=== PATIENT | female | born 1930 | race Caucasian/White ===

== ENCOUNTER → 2017-03-06 | Outpatient (CLI) | payer BC ==
[~2017-03-06] MED LIST: ADVIN50050 INH; ALBUAER2 INH; CLC100X PO; CRD30 PO; DRON400T PO; HYDR-5688 PO; IRON1TAB6 PO; LSX20 PO; OMEG10007 PO; POTA10CA28 PO; WARF2TAB8 PO
[2017-03-06 14:56] LABS: ESTIMATED AVERAGE GLUCOSE 114 mg/dl; HA1C FLAG Normal (Normal)
[2017-03-06 15:02] LABS: BASO % 0.3 %; BASO ABS # 0.02 K/uL (0-0.2); COMPLETE YES; EOS % 2.5 %; HEMATOCRIT 46.1 % (37-47); IG% 0.2 %; LYMPH % 20.9 %; LYMPH ABS # 1.32 K/uL (1.2-3.4); MEAN CELL VOLUME 89.9 fL (80-100); MEAN CORPUSCULAR HEMOGLOBIN 30.2 pg (25-34); MEAN CORPUSCULAR HGB CONC 33.6 g/dl (32-36); MEAN PLATELET VOLUME 12.6 fL (7.4-10.4); NEUT % 66.1 %; PLATELET COUNT 242 K/uL (130-400); RED BLOOD COUNT 5.13 M/uL (4.2-5.4); WHITE BLOOD COUNT 6.32 K/uL (4.8-10.8)
[2017-03-06 15:36] LABS: ALKALINE PHOSPHATASE 86 U/L (45-117); ALT/SGPT 19 U/L (12-78); AST/SGOT 14 U/L (15-37); BLOOD UREA NITROGEN 21 mg/dl (7-18); BUN/CREATININE RATIO 17.3 (10-20); CALCIUM 9.6 mg/dl (8.5-10.1); CARBON DIOXIDE 28 mmol/L (21-32); CHLORIDE 109 mmol/L (98-107); CHOLESTEROL 206 mg/dl (0-200); GLUCOSE 108 mg/dl (70-99); POTASSIUM 3.9 mmol/L (3.5-5.1); SODIUM 143 mmol/L (136-145); TRIGLYCERIDES 80 mg/dl (0-150); URIC ACID 5.9 mg/dl (2.6-7.2); VERY LOW DENSITY LIPOPROT CALC 16 mg/dl
[2017-03-06 15:45] LABS: CHOLESTEROL/HDL RATIO 2.6; HDL CHOLESTEROL 79 mg/dl; LDL CHOLESTEROL CALCULATED 111 mg/dl; THYROID STIMULATING HORMONE 0.747 uIu/ml (0.300-4.500); TOTAL IRON BINDING CAPACITY 301 mcg/dl (250-450)
== END | disposition home or self-care (01) ==
LOC: C.LAB 13:54
PROVIDERS: ATTEND Family Medicine
DX: E88.81 Metabolic syndrome and other insulin resistance (principal); E55.9 Vitamin D deficiency, unspecified; D51.9 Vitamin B12 deficiency anemia, unspecified; E78.9 Disorder of lipoprotein metabolism, unspecified; R53.83 Other fatigue

== ENCOUNTER 2017-04-13 15:14 | Emergency (ER) | payer BC ==
[~2017-04-13] VITALS: Ht 154.9 cm; Wt 87.0 kg
[2017-04-13 15:16] VITALS: TEMP 36.8; Ht 154.9 cm; Wt 87.0 kg
[2017-04-13] MEDS ORDERED: DILT180C50 PO (16:30)
[2017-04-13] MEDS ORDERED: ZOLP10TA6 PO (16:30)
[2017-04-13] MEDS ORDERED: OMEP20CA9 PO (16:30)
[2017-04-13] MEDS ORDERED: LSX20 PO (16:35)
[2017-04-13] MEDS ORDERED: FERR1TAB13 PO (16:35)
--- NOTE | 2017-04-13 16:51 | EMERGENCY ROOM VISIT NOTE ---
History First contact with patient: 15:48 Chief Complaint: URINARY SYMPTOMS Stated Complaint: YELLOW URINE/ODOR, FEEL HORRIBLE Nursing Triage Summary: urinary frequency, foul urine odor generalized illness History of Present Illness The patient is a 86 year old female who presents to the Emergency Room with complaints of increase frequency of urination and foul odor since yesterday. She denies any fevers, chills, nausea, vomiting, flank pain, suprapubic pain, gross hematuria. She reportedly called her PCP's office who then directed her to the ER. She does report some vaginal dryness/itching. Review of Systems See HPI for pertinent positives & negatives. A total of 10 systems reviewed and were otherwise negative. Past Medical/Surgical History Medical Problems: (1) Atrial flutter (2) CHF (congestive heart failure), NYHA class III (3) COPD (chronic obstructive pulmonary disease) (4) Replacement of mitral valve Surgical Problems: (1) Status post left hip replacement Family History Diabetes mellitus Social History Smoking Status: Former Smoker Marital Status: single Housing Status: lives alone Occupation Status: retired Current/Historical Medications Scheduled Albuterol (Ventolin Hfa), 2 PUFFS INH Q4HR Clobetasol Propionate (Clobetasol Propionate), 1 APPLN TOP BID Diltiazem Hcl Coated Beads (Cartia Xt), 180 MG PO DAILY Docusate Sodium (Colace), 100 MG PO DAILY Ferrous Sulfate (Kp Ferrous Sulfate), 325 MG PO QPM Fluticasone Prop/Salmeterol (Advair Diskus 500/50 Mcg *), 2 PUFFS INH BID Omeprazole (Prilosec), 20 MG PO DAILY Potassium Chloride (Micro-K Ext Rel), 10 MEQ PO DAILY Warfarin Sod (Jantoven), 2 MG PO 5XWK Warfarin Sod (Jantoven), 4 MG PO 2XWK Zolpidem Tartrate (Zolpidem Tartrate), 10 MG PO HS Scheduled PRN Furosemide (Furosemide), 20 MG PO DAILY PRN for PRN Physical Exam Vital Signs Date Time Temp Pulse Resp B/P (MAP) Pulse Ox O2 Delivery O2 Flow Rate FiO2 04/13/17 18:18 75 18 177/116 97 04/13/17 17:14 94 18 155/88 97 Room Air 04/13/17 15:16 36.8 102 20 167/95 96 Room Air Physical Exam GENERAL: Patient is in no acute distress. LUNGS: Clear to auscultation bilaterally, no wheeze, no rhonchi, breath sounds equal. HEART: Without murmurs gallops or rubs, regular rate and rhythm. ABDOMEN: Soft, nontender, bowel sounds positive, no hernias, no peritonitis. EXTREMITIES: trace edema, full range of motion of all the joints without pain or difficulty NEUROLOGIC: Oriented x 3, no acute motor or sensory deficits, no focal weakness. SKIN: No rash, no jaundice, no diaphoresis. Back: no CVA tenderness Medical Decision & Procedures Laboratory Results 04/13/17 17:03 Red Blood Count 4.83, Mean Corpuscular Volume 91.9, Mean Corpuscular Hemoglobin 30.4, Mean Corpuscular Hemoglobin Concent 33.1, Mean Platelet Volume 12.6, Neutrophils (%) (Auto) 74.5, Lymphocytes (%) (Auto) 13.3, Monocytes (%) (Auto) 9.0, Eosinophils (%) (Auto) 2.8, Basophils (%) (Auto) 0.1, Neutrophils # (Auto) 5.52, Lymphocytes # (Auto) 0.99, Monocytes # (Auto) 0.67, Eosinophils # (Auto) 0.21, Basophils # (Auto) 0.01 04/13/17 17:03 Test 04/13/17 16:54 04/13/17 17:03 Urine Color YELLOW Urine Appearance CLEAR (CLEAR) Urine pH 5.0 (4.5-7.5) Urine Specific [place] 1.019 (1.000-1.030) Urine Protein NEG (NEG) Urine Glucose (UA) NEG (NEG) Urine Ketones NEG (NEG) Urine Occult Blood 1+ (NEG) Urine Nitrite NEG (NEG) Urine Bilirubin NEG (NEG) Urine Urobilinogen NEG (NEG) Urine Leukocyte Esterase NEG (NEG) Urine WBC (Auto) 1-5 /hpf (0-5) Urine RBC (Auto) 0-4 /hpf (0-4) Urine Hyaline Casts (Auto) 1-5 /lpf (0-5) Urine Epithelial Cells (Auto) >30 /lpf (0-5) Urine Bacteria (Auto) NEG (NEG) White Blood Count 7.42 K/uL (4.8-10.8) Red Blood Count 4.83 M/uL (4.2-5.4) Hemoglobin 14.7 g/dL (12.0-16.0) Hematocrit 44.4 % (37-47) Mean Corpuscular Volume 91.9 fL (80-100) Mean Corpuscular Hemoglobin 30.4 pg (25-34) Mean Corpuscular Hemoglobin Concent 33.1 g/dl (32-36) Platelet Count 215 K/uL (130-400) Mean Platelet Volume 12.6 fL (7.4-10.4) Neutrophils (%) (Auto) 74.5 % Lymphocytes (%) (Auto) 13.3 % Monocytes (%) (Auto) 9.0 % Eosinophils (%) (Auto) 2.8 % Basophils (%) (Auto) 0.1 % Neutrophils # (Auto) 5.52 K/uL (1.4-6.5) Lymphocytes # (Auto) 0.99 K/uL (1.2-3.4) Monocytes # (Auto) 0.67 K/uL (0.11-0.59) Eosinophils # (Auto) 0.21 K/uL (0-0.5) Basophils # (Auto) 0.01 K/uL (0-0.2) RDW Standard Deviation 48.5 fL (36.4-46.3) RDW Coefficient of Variation 14.3 % (11.5-14.5) Immature Granulocyte % (Auto) 0.3 % Immature Granulocyte # (Auto) 0.02 K/uL (0.00-0.02) Anion Gap 7.0 mmol/L (3-11) Est Creatinine Clear Calc Drug Dose 36.4 ml/min Estimated GFR () 52.9 Estimated GFR (Non- 45.6 BUN/Creatinine Ratio 22.2 (10-20) Calcium Level 10.0 mg/dl (8.5-10.1) Total Bilirubin 0.2 mg/dl (0.2-1) Direct Bilirubin < 0.1 mg/dl (0-0.2) Aspartate Amino Transf (AST/SGOT) 19 U/L (15-37) Alanine Aminotransferase (ALT/SGPT) 26 U/L (12-78) Alkaline Phosphatase 108 U/L (45-117) Total Protein 7.6 gm/dl (6.4-8.2) Albumin 3.6 gm/dl (3.4-5.0) Globulin 4.0 gm/dl (2.5-4.0) Albumin/Globulin Ratio 0.9 (0.9-2) ED Course 1620 Patient evaluated in B6 with history and physical 1630 Blood work and U/A ordered 1745 Reviewed results with patient 1800 External Genital exam done 1810 Discharge plans discussed Medical Decision This is an 86 y/o F who presents with increased urinary frequency x 1 day. Etiologies considered include UTI, pyelonephritis, kidney stone, vaginal dryness etc. The patient's CBC was normal. Her U/A showed 1+ blood but no bacteria, nitrites or leuk. est. I explained the findings to the patient and no treatment was provided at this time, but recommended close follow up with PCP, especially if symptoms did not improve/worsened. I did do an external vaginal exam and noted vulvar erythema that extended around the anus as well. This seemed almost like lichen sclerosus/vulvar erythema that could be contributing to her itching/dryness. She was given a prescription for Clobetasol and recommended to use for a week. She was happy with the care provided and all questions were answered. Impression Primary Impression: Vulvar itching Departure Information Condition GOOD Prescriptions Clobetasol Propionate (CLOBETASOL PROPIONATE) 45 Appln/15 Gm Oint 1 APPLN TOP BID for 7 Days, #15 GM Prov: Zoe Warner MD 04/13/17 Referrals Yoel Almodovar M.D. (PCP) Patient Instructions [facility]
[2017-04-13 17:21] LABS: BASO % 0.1 %; BASO ABS # 0.01 K/uL (0-0.2); COMPLETE YES; EOS % 2.8 %; HEMATOCRIT 44.4 % (37-47); IG% 0.3 %; LYMPH % 13.3 %; LYMPH ABS # 0.99 K/uL (1.2-3.4); MEAN CELL VOLUME 91.9 fL (80-100); MEAN CORPUSCULAR HEMOGLOBIN 30.4 pg (25-34); MEAN CORPUSCULAR HGB CONC 33.1 g/dl (32-36); MEAN PLATELET VOLUME 12.6 fL (7.4-10.4); NEUT % 74.5 %; PLATELET COUNT 215 K/uL (130-400); RED BLOOD COUNT 4.83 M/uL (4.2-5.4); WHITE BLOOD COUNT 7.42 K/uL (4.8-10.8)
[2017-04-13 17:27] LABS: URINE APPEARANCE CLEAR (CLEAR); URINE BILIRUBIN NEG (NEG); URINE COLOR YELLOW; URINE EPITHELIAL CELL AUTO >30 /lpf (0-5); URINE NITRITE NEG (NEG); URINE SPECIFIC GRAVITY 1.019 (1.000-1.030); UROBILINOGEN NEG (NEG); ZZUR CULT IF INDIC CLEAN CATCH NO
[2017-04-13 17:29] LABS: MANUAL MICROSCOPIC REQUIRED? NO; REVIEW REQ? NO
[2017-04-13 17:42] LABS: ALT/SGPT 26 U/L (12-78); AST/SGOT 19 U/L (15-37); BLOOD UREA NITROGEN 24 mg/dl (7-18); BUN/CREATININE RATIO 22.2 (10-20); CARBON DIOXIDE 26 mmol/L (21-32); CHLORIDE 108 mmol/L (98-107); CREATININE 1.09 mg/dl (0.60-1.20); GLUCOSE 141 mg/dl (70-99); POTASSIUM 3.9 mmol/L (3.5-5.1); SODIUM 141 mmol/L (136-145)
[2017-04-13 17:44] LABS: ALB/GLOB RATIO 0.9 (0.9-2); ALKALINE PHOSPHATASE 108 U/L (45-117)
[2017-04-13] MEDS ORDERED: CLBPO15 TOP (18:11)
--- NOTE | 2017-04-13 18:14 | EMERGENCY ROOM VISIT NOTE ---
ED Visit Note First contact with patient: 16:00 Pt seen and examined with at bedside after resident. Pt aware of all results. Patient's labs and urine reassuring. Patient agreeable with plan as discussed. Patient to follow-up with family doctor. Discussed with her or concerning symptoms that she should return to the emergency room for. Discussed use of her regular medications. Patient well-appearing on my bedside exam, exam not consistent with bacteremia/sepsis, acute GI pathology, kidney stone, or pyelonephritis.
[2017-04-13 18:18] VITALS: BP 177/116; PULSE 75; O2SAT 97
== END 2017-04-13 18:20 | disposition home or self-care (01) ==
LOC: C.EDB 15:15
DX: L29.2 Pruritus vulvae (principal); J44.9 Chronic obstructive pulmonary disease, unspecified; Z87.891 Personal history of nicotine dependence; Z96.642 Presence of left artificial hip joint; Z95.2 Presence of prosthetic heart valve; Z83.3 Family history of diabetes mellitus; Z79.01 Long term (current) use of anticoagulants

== ENCOUNTER → 2018-01-08 | Outpatient (CLI) | payer BC ==
[~2018-01-08] MED LIST changes: +ADVIN50/60 INH; -ADVIN50050 INH; -ALBUAER2 INH; -CLC100X PO; -CRD30 PO; +DILT180C50 PO; +DOCU1TAB6 PO; -DRON400T PO; +FERR1TAB13 PO; -HYDR-5688 PO; -IRON1TAB6 PO; +MULT-506 PO; -OMEG10007 PO; +OMEP20CA9 PO; +VNTHFA/IN INH; +ZOLP10TA6 PO
[2018-01-08 12:53] LABS: HEMOGLOBIN A1C 5.5 % (4.5-5.6)
[2018-01-08 13:08] LABS: ALBUMIN 3.4 gm/dl (3.4-5.0); ALKALINE PHOSPHATASE 80 U/L (45-117); ALT/SGPT 24 U/L (12-78); AST/SGOT 18 U/L (15-37); BLOOD UREA NITROGEN 15 mg/dl (7-18); CALCIUM 9.6 mg/dl (8.5-10.1); CARBON DIOXIDE 24 mmol/L (21-32); CREATININE 0.89 mg/dl (0.60-1.20); GLUCOSE 118 mg/dl (70-99); POTASSIUM 3.7 mmol/L (3.5-5.1); SODIUM 138 mmol/L (136-145); TOTAL PROTEIN 7.1 gm/dl (6.4-8.2)
== END | disposition home or self-care (01) ==
LOC: C.LAB 10:08
PROVIDERS: ATTEND Internal Medicine Cardiovascular Disease
DX: R73.9 Hyperglycemia, unspecified (principal); I10 Essential (primary) hypertension